=== PATIENT | male | born 2000 | race Caucasian/White ===

== ENCOUNTER → 2020-10-03 | Outpatient (CLI) | payer OTHER ==
--- NOTE | 2020-10-04 07:34 | ECHO ---
DATE OF PROCEDURE: 10/03/2020 Age: 20 Gender: Male REFERRING PHYSICIAN: Kunal Trivedi PA-C PATIENT LOCATION: Outpatient. REASON FOR STUDY: Heart murmur. 2D MEASUREMENTS: IVS 1.0 cm LV 5.1 cm LVPW 1.0 cm LA 3.1 cm Aorta 2.9 cm RV 2.5 cm IVC 1.9 cm DOPPLER MEASUREMENT Peak velocity across the aortic valve 1.1 msec Mitral E 1.02 Mitral A 0.5 with a ratio of 2.2 2D COMMENTS: 1. Normal left ventricular size, wall thickness, and normal global left ventricular systolic function. The estimated left ventricular systolic ejection fraction is 60% to 65%. 2. Normal left atrium. Normal right atrium and right ventricle. 3. The atrial septum appeared to be normal without evidence of defect or shunt. 4. Normal aortic root. 5. No pericardial effusion seen. 6. The aortic valve, mitral valve, and tricuspid valve appear to be normal. The proximal pulmonary artery branches also appeared to be normal. 7. The inferior vena cava was normal in size. Central venous pressure is most likely normal. DOPPLER: No significant valvular abnormalities detected. Assessment of the left ventricular diastolic function appeared to be normal. IMPRESSION: 1. Normal global left ventricular systolic and diastolic function. 2. No significant valvular heart disease. MTDD
== END ==
LOC: M CARPUL 09:28
PROVIDERS: ATTEND Physician Assistant
DX: R01.1 Cardiac murmur, unspecified (principal)